=== PATIENT | male | born 1970 | race Two or more races ===

== ENCOUNTER 2022-09-02 14:56 | Emergency (ER) | payer BC, SELFPAY ==
[2022-09-02 14:57] VITALS: BP 139/86; PULSE 98; RESP 17; TEMP 36.6; O2SAT 99; BMI 26.6
--- NOTE | 2022-09-02 15:34 | XR_ITS ---
FINAL REPORT CLINICAL HISTORY: dog bite FINDINGS: RIGHT KNEE Three views of the right knee reveal no evidence of fracture or dislocation. The bony alignment is normal. The joint spaces are preserved. There is no evidence of joint effusion. No localized soft tissue abnormality is identified. IMPRESSION: No acute abnormality identified. Reviewed, Interpreted and Dictated by Manish Epperson III, MD Transcribed by Marcia Gallagher Authenticated and [facility]
--- NOTE | 2022-09-02 15:41 | HMH.EDGENADL ---
Discharge Plan Disposition Patient Disposition: Home, Self-Care Condition: Good Prescriptions Prescriptions: New amoxicillin-pot clavulanate [Augmentin] 500-125 mg tablet 1 tab PO Q8H Qty: 30 0RF Referrals Follow up/Referrals: Nakul Lares [Primary Care Provider] - See instructions Activity Restrictions/Add. Instructions Additional Instructions/Restrictions: Take Augmentin as prescribed. Clean wound daily with soap and water and bandage until healed. Follow-up with your primary care provider next week for a wound check. Return emergency department if increasing pain, redness, swelling, red streaks, fever, or pus drainage Clinical Impressions Clinical Impression: Dog bite of right knee Instructions Patient Instructions: DI for Dog Bite Discharge ED Provider: Jesus Chan General Adult HPI General Chief complaint: Animal Bite Stated complaint: Dog bite 09/02 1250 RT knee lesion Time Seen by Provider: 09/02/22 15:30 Mode of Arrival: Ambulatory Source of Information: Patient Limitations: No Limitations Description of Symptoms (Recalled from ER Triage Doc. by RN): 51 M presents with a dog bite to the lateral aspect of his right knee. Bleeding controlled. The dog belonged to patient's neighbor. Unknown shot status. Animal control has already been notified and has the dog with them. History of Present Illness HPI narrative: The patient was bit on his right knee by a pit bull type of dog that belongs to a neighbor, the dog is currently in captivity. Last tetanus immunization greater than 5 years ago. Pain is now beginning to radiate down his legs. Related Data Previous Rx's Medication Instructions Recorded amoxicillin 500 mg-potassium 1 tab PO Q8H #30 tabs 09/02/22 clavulanate 125 mg tablet (Augmentin) Allergies Allergy/AdvReac Type Severity Reaction Status Date / Time No Known Allergies Allergy Verified 01/07/18 11:47 [facility] Disclaimer: The information contained in this section may have been updated after the patient was seen, as this information can be updated by other users. Social History Smoking Status: Former smoker alcohol intake: never Travel in the last 8 weeks: None ROS Obtained: Yes Systems reviewed as appropriate & no additional complaints except as documented Constitutional Constitutional: Denies weakness Musculoskeletal Musculoskeletal: Denies numbness Integumentary/Breasts Skin/Breast: Reports wounds Neurologic Neurologic: Denies numbness and Denies weakness Physical Exam General General appearance: alert and in no apparent distress Chest Chest inspection: Present normal inspection and symmetric chest wall rise Respiratory Respiratory exam: Absent respiratory distress Cardiovascular Cardiovascular exam: Present regular rate Expanded Lower Extremity Exam Right: Comment: 3 puncture wounds on the lateral aspect of his right knee with mild surrounding edema. No intra-articular joint effusion. Full range of motion. Distal neurovascular status intact. No visible or palpable foreign body. Neurological Exam Neurological exam: Present alert and oriented X3 Psychiatric Psychiatric exam: Present normal affect and normal mood Skin Skin exam: Present warm and dry Medical Decision Making Ron Inquiry Pt receiving controlled substance: No Vital Signs: 09/02/22 14:57 Temperature 97.9 F Temperature Source Oral Pulse Rate [Left] 98 H Respiratory Rate 17 Blood Pressure [Right Arm] 139/86 Blood Pressure Mean [Right Arm] 103 Blood Pressure Source [Right Arm] Automatic Cuff Blood Pressure Position [Right Arm] Sitting 02 Sat by Pulse Oximetry 99 Oxygen Delivery Method Room Air Orders (Tests/Meds): ED MEDICATIONS Generic Name Dose Route Start Last Admin Trade Name Freq PRN Reason Stop Dose Admin Bacitracin 1 each 09/02/22 15:37 09/02/22 15:40 Bacitracin Oint 0.9gm Udp TP 09/02/22 15:38 1 each ONCE ONE Administrati
[2022-09-02 16:16] VITALS: BP 130/86; PULSE 79; RESP 17; TEMP 36.6; O2SAT 99
== END 2022-09-02 16:21 | disposition home or self-care (01) ==
LOC: ER 15:59
PROVIDERS: Emergency Provider Emergency Medicine; PCP Pediatrics
DX: S81.031A Puncture wound without foreign body, right knee, initial encounter (principal); W54.0XXA Bitten by dog, initial encounter; Z87.891 Personal history of nicotine dependence; Z23 Encounter for immunization
CPT/HCPCS: 73562; 90471; 90715; 99283; 99284